=== PATIENT | male | born 1970 | race Two or more races ===

== ENCOUNTER 2020-01-21 13:03 | Inpatient (IN) | payer OTHER ==
[~2020-01-21] VITALS: Ht 162.6 cm; Wt 127.0 kg
--- NOTE | 2020-01-21 13:15 | NUR ---
[facility]/o cough and chest tightness x 1 week. On room air, breathing evenly and unlabored. connected to the monitor and pulse ox. kept comfortable, will continue to monitor accordingly.
--- NOTE | 2020-01-21 13:47 | NUR ---
Dr. Banks at bedside for eval
[2020-01-21] MEDS ORDERED: PANTOPRAZOLE 40 MG VIAL IV ONE (14:00)
[2020-01-21] MEDS ORDERED: PANTOPRAZOLE 40 MG VIAL ONE (14:01)
--- NOTE | 2020-01-21 14:13 | NUR ---
Na at bedside for x-ray
[2020-01-21 14:32] LABS: BASOPHILS # (AUTO) 0.1 /CMM (0.0-0.2); BASOPHILS % (AUTO) 0.7 % (0.0-2.0); EOSINOPHILS % (AUTO) 1.3 % (0.0-6.0); HEMATOCRIT 46 % (39-51); LYMPHOCYTES # (AUTO) 2.6 /CMM (0.8-4.8); LYMPHOCYTES % (AUTO) 21.1 % (20.0-44.0); MEAN CORPUSCULAR HGB CONC 32 g/dl (31.0-36.0); MEAN CORPUSCULAR VOLUME 91 fL (80-96); MONOCYTES # (AUTO) 0.7 /CMM (0.1-1.30); MONOCYTES % (AUTO) 5.9 % (2.0-12.0); NEUTROPHILS # (AUTO) 8.8 /CMM (1.8-8.9); PLATELET COUNT (AUTO) 199 /CMM (150-450); RED BLOOD CELL COUNT(AUTO) 5.06 MIL/uL (4.5-6.0); WHITE BLOOD COUNT (AUTO) 12.4 K/uL (4.3-11.0)
[2020-01-21 14:43] LABS: CALCIUM, SERUM 9.1 mg/dL (8.5-10.1); CREATININE 1.1 mg/dL (0.6-1.3); POTASSIUM 4.2 mmol/L (3.5-5.1)
[2020-01-21 15:27] LABS: EOSINOPHILS % (MANUAL) 1 % (0-4); LYMPHOCYTES % (MANUAL) 26 % (16-48); MONOCYTES % (MANUAL) 8 % (0-11.0); NEUTROPHILS % (MANUAL) 65 (42-76)
[2020-01-21] MEDS ORDERED: IV NS 0.9% 250 ML IV ONE (15:29)
[2020-01-21] MEDS ORDERED: IOHEXOL-350 100 ML VIAL IV ONE (15:29)
[2020-01-21] MEDS ORDERED: CT SWABBABLE VALVE TRANS SET 1 EA INFUS.SET MC ONE (15:29)
[2020-01-21] MEDS ORDERED: ASPIRIN 81 MG TAB.CHEW PO ONE (15:30)
[2020-01-21] MEDS ORDERED: NTG 50 MG/D5W250 ML BOTTL 250 ML IV ONE (15:34)
--- NOTE | 2020-01-21 15:34 | NUR ---
D DIMER CANCELLED AND CTPA ORDERED INSTEAD BY DR DALE,LAB CALLED
[2020-01-21] MEDS ORDERED: ASPIRIN 81 MG TAB.CHEW ONE (15:39)
--- NOTE | 2020-01-21 15:40 | NUR ---
wheeled patient to ct
[2020-01-21] MEDS: NTG 50 MG/D5W250 ML BOTTL 250 ML IV PRN ×2 (15:48→17:09)
--- NOTE | 2020-01-21 15:49 | NUR ---
patient came back from ct
[2020-01-21] MEDS ORDERED: ENOXAPARIN SODIUM 100 MG/ML DISP.SYRIN SQ ONE ×2 (15:58→16:00)
--- NOTE | 2020-01-21 16:30 | NUR ---
spoke to brenton BLACK and update about the patient given.
[2020-01-21] MEDS ORDERED: hydrALAZINE HCL IV 20 MG VIAL ONE (17:10)
[2020-01-21] MEDS ORDERED: NITROGLYCERIN PACKET 1 GM PACKET ONE ×2 (17:11→17:30)
[2020-01-21] MEDS ORDERED: NITROGLYCERIN PACKET 1 GM PACKET TOP ONE ×2 (17:30)
[2020-01-21] MEDS ORDERED: hydrALAZINE HCL IV 20 MG VIAL IV ONE (17:30)
[2020-01-21] MEDS ORDERED: hydrALAZINE HCL 10 MG TABLET PO ONE (17:30)
--- NOTE | 2020-01-21 19:25 | NUR ---
report given to Juanis HUNT for gogo.
--- NOTE | 2020-01-21 19:58 | NUR ---
asked pt about his home meds. pt does not remember the exact dosage of his med. called Daniel, pt's son . He has noaccess to the meds list t this time. Daniel: [phone]
--- NOTE | 2020-01-21 20:06 | NUR ---
BED 322-2
--- NOTE | 2020-01-21 20:35 | NUR ---
report given to arcenio on the 3rd floor
--- NOTE | 2020-01-21 20:50 | NUR ---
TELERN RECEIVED FROM ER VIA JAIMIE, A 49 Y/O MALE CC OF CP WITH SOB. LEVEL 2 OF CP AT THIS TIME, NITROPASTE FROM ER ON RIGHT CW. 02 2 LITERS ON. BEDREST EMPHASIZED. ALERT ORIENTED X4, VERY PLEASANT. ORIENTED TO ROOM FACILITIES, REMINDED TO CALL STAFF FOR ANY ASSITANCE OR DISCOMFORTS, CALL LIGHT USE REVIEWED WITH PATIENT, WELL UNDERSTOOD. SR ON THE MONITOR, CLOSELY WATCHED.
[2020-01-21 21:00] VITALS: BP 127/87
[2020-01-21] MEDS ORDERED: CARVEDILOL 6.25 MG TABLET PO SCH (21:00)
[2020-01-21] MEDS ORDERED: Z GUARD REMEDY 2 OZ OINT TP PRN (21:00)
[2020-01-21] MEDS ORDERED: DEXTROSE 50%-WATER 50 ML DISP.SYRIN IV PRN (21:00)
[2020-01-21] MEDS ORDERED: ACETAMINOPHEN 325 MG TABLET PO PRN (21:00)
[2020-01-21] MEDS ORDERED: ONDANSETRON HCL/PF 4 MG/2 ML VIAL IVP PRN (21:00)
[2020-01-21] MEDS ORDERED: ENOXAPARIN SODIUM 40 MG/0.4 ML DISP.SYRIN SQ SCH (21:00)
[2020-01-21] MEDS ORDERED: ZOLPIDEM TARTRATE 5 MG TABLET PO PRN (21:00)
--- NOTE | 2020-01-21 21:00 | NUR ---
PT WAS TRANSFERRED TO 322 UNDER ACLS
--- NOTE | 2020-01-21 21:15 | NUR ---
TELERN 2D ECHO AT BEDSIDE.
[2020-01-21] MEDS: BLOOD SUGAR DIAGNOSTIC 1 EACH STRIP IN SCH (22:26)
[2020-01-21] MEDS ORDERED: ATORVASTATIN 40 MG TABLET PO ONE (23:00)
[2020-01-21] MEDS ORDERED: hydrALAZINE HCL 25 MG TABLET PO PRN (23:00)
[2020-01-21] MEDS ORDERED: ASPIRIN EC 325 MG TABLET.DR PO SCH (23:00)
--- NOTE | 2020-01-21 23:00 | NUR ---
TELERN DUE MEDS GIVEN, AWARE OF ELEVATED TROP. ORDERS RECEIVED.
[2020-01-22] VITALS: BP 140/85
--- NOTE | 2020-01-22 02:51 | NUR ---
TELERN AWAKENED WITH RIGHT LEG CRAMPS, INSTRUCTED TO STRETCH AFFECTED LEG FOR FEW MINUTES, WITH RELIEF. BEDREST REMINDED. 02 3.5 L VIA NC MAINTAINED.
[2020-01-22 04:00] VITALS: BP 111/74
[2020-01-22] MEDS ORDERED: ENOXAPARIN SODIUM 120 MG/0.8 ML DISP.SYRIN SQ SCH ×3 (04:00→21:00)
[2020-01-22] MEDS ORDERED: ENOXAPARIN SODIUM 60 MG/0.6 ML DISP.SYRIN SQ ONE ×2 (04:14→05:00)
[2020-01-22 04:20] LABS: BASOPHILS % (AUTO) 0.3 % (0.0-2.0); HEMATOCRIT 42 % (39-51); HEMOGLOBIN 13.8 g/dL (13.5-17.5); LYMPHOCYTES # (AUTO) 2.7 /CMM (0.8-4.8); LYMPHOCYTES % (AUTO) 19.3 % (20.0-44.0); MEAN CORPUSCULAR HGB CONC 33 g/dl (31.0-36.0); MEAN CORPUSCULAR VOLUME 90 fL (80-96); MONOCYTES # (AUTO) 1.1 /CMM (0.1-1.30); NEUTROPHILS # (AUTO) 9.8 /CMM (1.8-8.9); NEUTROPHILS % (AUTO) 71.4 % (43.0-81.0); PLATELET COUNT (AUTO) 266 /CMM (150-450); RED BLOOD CELL COUNT(AUTO) 4.69 MIL/uL (4.5-6.0); WHITE BLOOD COUNT (AUTO) 13.8 K/uL (4.3-11.0)
[2020-01-22 04:32] LABS: ALBUMIN 3.6 g/dL (3.4-5.0); BILIRUBIN,TOTAL 0.8 mg/dL (0.2-1.0); CALCIUM, SERUM 8.7 mg/dL (8.5-10.1); MAGNESIUM 1.8 mg/dL (1.8-2.4); PHOSPHORUS 5.3 mg/dL (2.5-4.9); POTASSIUM 4.2 mmol/L (3.5-5.1); TOTAL PROTEIN, SERUM 6.8 g/dL (6.4-8.2)
--- NOTE | 2020-01-22 07:00 | NUR ---
TELERN REMAINS SR ON THE MONITOR, 02 MAINTAINED. BS STABLE, NO COVERAGE. KEPT NPO TILL SEEN BY HOUSE FELLOW.
[2020-01-22 07:46] LABS: THYROID STIMULATING HORMONE 3.522 uIU/mL (0.358-3.74)
[2020-01-22 08:00] VITALS: BP 122/72
[2020-01-22] MEDS: BLOOD SUGAR DIAGNOSTIC 1 EACH STRIP IN SCH ×4 (09:13→22:22)
--- NOTE | 2020-01-22 13:23 | NUR ---
received call from cardiac cath nurse, stating that per dr. Stiles to start diet and possible cardiac cath in am, npo from midnight. primary nurse Jen keen.
[2020-01-22] MEDS: VALSARTAN 80 MG TABLET PO SCH (13:25)
[2020-01-22] MEDS: ASPIRIN EC 81 MG TABLET.DR PO SCH (13:29)
[2020-01-22] MEDS: CARVEDILOL 6.25 MG TABLET PO SCH ×2 (13:30→22:18)
[2020-01-22] MEDS: PANTOPRAZOLE 40 MG TABLET.DR PO SCH (13:30)
[2020-01-22] MEDS: INSULIN REGULAR, HUMAN 100 UNIT/ML 3 ML VIAL SQ PRN ×3 (14:47→22:29)
[2020-01-22] MEDS ORDERED: METF-440 PO (15:03)
[2020-01-22] MEDS ORDERED: OMEP20CA15 PO (15:09)
[2020-01-22] MEDS ORDERED: ROSU10TA2 PO (15:11)
[2020-01-22 16:00] VITALS: BP 124/73
--- NOTE | 2020-01-22 19:00 | NUR ---
gilbert questioned dr. haro as to whether to administer lovenox evening dose tonight as pt. to have cardiac cath tomorrow.md vazquez'naman dose. endorsed to eve. garvey. Addendum: 01/22/20 at 2034 by MODESTA KRAFT RN ABOVE NOTE INCORRECT STATED TO HOLD KALI. LOVENOX TONIGHT.GILBERT DELUCA.
--- NOTE | 2020-01-22 19:05 | NUR ---
TELE/RN NOTES: RECEIVED REPORT FROM GILBERT Hooper RECEIVED PT. AWAKE IN BED, RESTING. A/OX4. VERBALLY RESPONSIVE, AND ABLE TO MAKE NEEDS KNOWN. ON TELE WITH READING OF NSR, HR ON THE 90S. BREATHING EVEN AND UNLABORED. CURRENTLY ON ROOM AIR SATURATING AT 95%. IV ON THE RIGHT HAND #18G INTACT, PATENT AND FLUSHING WELL. TO BE PLACED ON NPO STARTING MIDNIGHT FOR CARDIAC CATHETERIZATION PROCEDURE TOMORROW. PER REPORT, PT IS A HARD STICK AND ER NURSES COULDN'T GET AN AC IV LINE. WILL TRY TO PUT IN A LINE LATER. SAFETY MEASURES ARE IN PLACE. BED IN LOW, LOCKED POSITION WITH SR UP X2. CALL LIGHT WITHIN REACH. WILL CONTINUE TO MONITOR.
--- NOTE | 2020-01-22 19:10 | NUR ---
TELE/RN NOTES: CLARIFIED WITH DAY SHIFT RN, MODESTA Hooper AND DR. MURILLO. LOVENOX 120MG TO BE HELD TO NIGHT FOR CARDIAC CATH PROCEDURE TOMORROW. WILL CONTINUE TO MONITOR.
[2020-01-22 20:00] VITALS: BP 126/79
[2020-01-22] MEDS ORDERED: ENOXAPARIN SODIUM 60 MG/0.6 ML DISP.SYRIN SQ SCH (21:00)
[2020-01-22] MEDS: ATORVASTATIN 40 MG TABLET PO SCH (22:18)
--- NOTE | 2020-01-22 22:32 | NUR ---
TELE/RN NOTES: PT'S BS CHECK FOR HS IS 150. ADMINISTERED 2 UNITS OF REGULAR INSULIN PER SLIDING SCALE. GIVEN ORANGE JUICE TO PREVENT BLOOD SUGAR FROM DROPPING. ALL DUE MEDS ADMINISTERED. INFORMED PT. HE WILL BE NPO AFTER MIDNIGHT FOR CARDIAC CATH PROCEDURE. WILL CONTINUE TO MONITOR.
[2020-01-23] VITALS (15 sets, daily range): BP systolic 95–141; BP diastolic 56–74
[2020-01-23] MEDS ORDERED: BIVALIRUDIN 250 MG/VIAL IV ONE (06:00)
--- NOTE | 2020-01-23 06:07 | NUR ---
TELE/RN NOTES: ATTEMPTED 2X FOR AN AC IV LINE #20G PRIOR TO SCHEDULE CARDIAC CATH. PT. IS HARD STICK.
[2020-01-23] MEDS ORDERED: IV NS 0.9% 500 ML IV ONE (06:12)
[2020-01-23] MEDS ORDERED: IODIXANOL 150 ML IV ONE (06:13)
[2020-01-23] MEDS ORDERED: LIDOCAINE HCL/PF 1% 30 ML SDV ONE (06:13)
[2020-01-23] MEDS: BLOOD SUGAR DIAGNOSTIC 1 EACH STRIP IN SCH ×4 (06:30→21:29)
[2020-01-23] MEDS: INSULIN REGULAR, HUMAN 100 UNIT/ML 3 ML VIAL SQ PRN ×4 (06:31→21:32)
--- NOTE | 2020-01-23 06:31 | NUR ---
TELE/RN NOTES: BS CHECK FOR AC IS 161. PT. HAS BEEN NPO AND IS CURRENTLY NPO FOR CARDIAC CATH PROCEDURE TODAY. REGULAR INSULIN HELD.
[2020-01-23] MEDS ORDERED: VERAPAMIL HCL IV 5 MG/2 ML VIAL ONE (06:33)
[2020-01-23] MEDS ORDERED: HEPARIN SODIUM, PORCINE 1,000 UNIT/ML VIAL ONE ×2 (06:33→07:31)
[2020-01-23] MEDS ORDERED: IV SET PRIMARY PUMP SET 1 EA INFUS.SET MC ONE (06:33)
[2020-01-23] MEDS ORDERED: NITROGLYCERIN ICAR 1,000 MCG/10 ML VIAL ICAR ONE (06:34)
--- NOTE | 2020-01-23 06:50 | NUR ---
TELE/RN NOTES: PT. AWAKE IN BED, RESTING. A/OX4. VERBALLY RESPONSIVE, AND ABLE TO MAKE NEEDS KNOWN. ON TELE WITH READING OF NSR, HR ON THE 70S. BREATHING EVEN AND UNLABORED. CURRENTLY ON 3L OF OXYGEN VIA NC SATURATING AT 96%. IV ON THE RIGHT HAND #18G INTACT, PATENT AND FLUSHING WELL. ANOTHER IV INSERTED BY CATH AMBER ESPINOZA ON THE LEFT HAND #18G. KEPT NPO STARTING MIDNIGHT FOR CARDIAC CATHETERIZATION PROCEDURE TODAY. SAFETY MEASURES KEPT IN PLACE. BED IN LOW, LOCKED POSITION WITH SR UP X2. CALL LIGHT WITHIN REACH. WILL ENDORSE TO DAY SHIFT FOR ROMEO
--- NOTE | 2020-01-23 07:00 | NUR ---
TELE/RN NOTES: [facility] WITH RN OLGA AT BEDSIDE. NEW IV LINE IN PLACED AT LEFT HAND.
--- NOTE | 2020-01-23 07:19 | NUR ---
TELE/RN CLOSING NOTES: PATIENT REPORT GIVEN TO GILBERT Hooper ALL CONTINUITY OF CARE ENDORSED.
[2020-01-23] MEDS: PANTOPRAZOLE 40 MG TABLET.DR PO SCH (07:30)
[2020-01-23] MEDS ORDERED: MIDAZOLAM HCL 2 MG/2ML VIAL ONE (07:31)
[2020-01-23] MEDS ORDERED: FENTANYL PF 100MCG/2ML AMPUL ONE (07:31)
[2020-01-23 07:56] LABS: BASOPHILS % (AUTO) 0.5 % (0.0-2.0); EOSINOPHILS % (AUTO) 1.5 % (0.0-6.0); HEMATOCRIT 42 % (39-51); HEMOGLOBIN 13.9 g/dL (13.5-17.5); LYMPHOCYTES # (AUTO) 2.9 /CMM (0.8-4.8); LYMPHOCYTES % (AUTO) 27.7 % (20.0-44.0); MEAN CORPUSCULAR HGB CONC 33 g/dl (31.0-36.0); MEAN CORPUSCULAR VOLUME 91 fL (80-96); MONOCYTES # (AUTO) 0.8 /CMM (0.1-1.30); MONOCYTES % (AUTO) 8.1 % (2.0-12.0); NEUTROPHILS # (AUTO) 6.6 /CMM (1.8-8.9); NEUTROPHILS % (AUTO) 62.2 % (43.0-81.0); PLATELET COUNT (AUTO) 244 /CMM (150-450); RED BLOOD CELL COUNT(AUTO) 4.63 MIL/uL (4.5-6.0); WHITE BLOOD COUNT (AUTO) 10.5 K/uL (4.3-11.0)
[2020-01-23] MEDS ORDERED: CLOPIDOGREL BISULFATE 300 MG TABLET ONE (08:18)
[2020-01-23] MEDS ORDERED: ASPIRIN 81 MG TAB.CHEW ONE (08:19)
[2020-01-23 08:35] LABS: ALBUMIN 3.4 g/dL (3.4-5.0); CALCIUM, SERUM 8.8 mg/dL (8.5-10.1); PHOSPHORUS 3.9 mg/dL (2.5-4.9); POTASSIUM 4.3 mmol/L (3.5-5.1); TOTAL PROTEIN, SERUM 6.9 g/dL (6.4-8.2)
--- NOTE | 2020-01-23 08:50 | NUR ---
silviculture teacher initial note recieved patient awake alert and oriented, denies sob, denies pain or discomfort. on tele monitor sinus rhythm. skin warm and dry to touch. with tr band on right wrist, denies numbness, able to move fingers, no hematoma noted. noted with spo2 90% on room air. patient states he was on oxygen upstairs, placed patient on 2lpmo2 via nc. side rails up and locked. bed kept at lowest position. call light kept within easy reach. will continue to monitor.
[2020-01-23] MEDS: CARVEDILOL 6.25 MG TABLET PO SCH ×2 (09:00→21:34)
[2020-01-23] MEDS: VALSARTAN 80 MG TABLET PO SCH (09:00)
[2020-01-23] MEDS: ASPIRIN EC 81 MG TABLET.DR PO SCH (09:00)
[2020-01-23] MEDS ORDERED: IV NS 0.9% 1,000 ML IV ONE (09:00)
--- NOTE | 2020-01-23 09:50 | NUR ---
CNC MILLING MACHINIST NOTE LAB AT BEDSIDE. PATIENT, UNABLE TO DRAW FROM PICC LINE, NO BLOOD RETURN. APPLICATION PROCESSOR ATTEMPTED FROM PERIPHERAL, PATIENT IS HARD STICK. WAS UNABLE TO DRAW LAB WORK Addendum: 01/23/20 at 1021 by STEPHEN CAMACHO RN DISREGARD; WRONG PATIENT
--- NOTE | 2020-01-23 11:00 | NUR ---
multicultural internship note TR band removed, no complications note, no hematoma, patient denies numbness, no bleeding noted. will continue to monitor.
--- NOTE | 2020-01-23 12:00 | NUR ---
multicut line operator note blood sugar 140, covered per protocol. lunch eaten 100%
--- NOTE | 2020-01-23 13:20 | NUR ---
SLIME PLANT OPERATOR HELPER NOTE PATIENT TRANSFERRED VIA BED AND BROUGHT TO 326-1, PATIENT IN STABLE CONDITION. BEDSIDE REPORT GIVEN TO TORRES HUNT.
--- NOTE | 2020-01-23 14:00 | NUR ---
Tele/RN - Transfer from ICU Received from ICU s/p left heart cath with selective left and right coronary angiography under the care of Dr. Machuca today, right radial puncture site assessed, no bleeding, no oozing, no hematoma, no swelling noted, dressing is clean, dry, and intact. RUE is warm, pulse strength good, sensation intact. Patient is A/O x 4, denies chest/abdominal/back pain, no c/o SOB, uses supplemental oxygen at 2lpm via NC, tele shows SR 75. All needs attended. Will continue with current plan of care.
--- NOTE | 2020-01-23 18:25 | NUR ---
Tele/RN - End of shift summary No significant change in condition, A/O x 4, on 2lpm via NC, SpO2 93%, remain afebrile, tele shows SR, blood sugar controlled, right radial puncture site with no hematoma, no bleeding, no swelling seen. Plan of care discussed with patient and in agreement.
--- NOTE | 2020-01-23 20:15 | NUR ---
RECEIVED ALERT AND ORIENTATED SPEECH CLEAR RIGHT RADIAL PUNCTURE SITE CDI. SR ON THE MONITOR CALL LIGHT REVIEWED WITH THE PATIENT
[2020-01-23] MEDS: ATORVASTATIN 40 MG TABLET PO SCH (21:33)
[2020-01-24] VITALS: BP 114/71
[2020-01-24 00:32] VITALS: BP 114/71
[2020-01-24 04:00] VITALS: BP 117/68
--- NOTE | 2020-01-24 05:05 | NUR ---
MR. MONIQUE WAS AWAKE UNTIL 23:00 AND THEN ASKED FOR SOMETHING TO HELP HIM SLEEP. AMBIEN GIVEN AND EFFECTIVE. DENIES PAIN. ON THE SOFTWARE TESTER HE IS SR 64 - 78 THRU THE NIGHT. NO SOB NOTED THIS 12 HOURS. SLEPT WITH 2 LITERS 02 SATS 96% RIGHT RADIAL PUNCTURE SITE CDI. NO HEMATOMA.
[2020-01-24 05:10] VITALS: BP 117/68
[2020-01-24] MEDS: BLOOD SUGAR DIAGNOSTIC 1 EACH STRIP IN SCH ×2 (06:13→12:10)
[2020-01-24] MEDS: INSULIN REGULAR, HUMAN 100 UNIT/ML 3 ML VIAL SQ PRN ×2 (06:18→11:51)
--- NOTE | 2020-01-24 07:39 | NUR ---
RN NOTES RECEIVED PATIENT IN BED ,ASLEEP, ALERT AND ORIENTED X 3. NO SIGNS OF DISTRESS NOTED AT THIS TIME. IV ON LEFT HAND, SL. SHOWS NO SIGNS OF INFILTRATION, NO REDNESS. SAFETY PRECAUTIONS IN PLACE. BED IN LOWEST POSITION, LOCKED, AND CALL LIGHT KEPT WITHIN REACH. WILL CONTINUE TO MONITOR.
[2020-01-24 08:10] VITALS: BP 120/74
[2020-01-24 08:55] VITALS: BP 120/74
[2020-01-24] MEDS: ASPIRIN EC 81 MG TABLET.DR PO SCH (08:55)
[2020-01-24] MEDS: VALSARTAN 80 MG TABLET PO SCH (08:55)
[2020-01-24] MEDS: CARVEDILOL 6.25 MG TABLET PO SCH (08:55)
[2020-01-24] MEDS: PANTOPRAZOLE 40 MG TABLET.DR PO SCH (08:55)
[2020-01-24] MEDS ORDERED: CLOPIDOGREL BISULFATE 75 MG TABLET PO SCH (09:00)
[2020-01-24] MEDS ORDERED: ASPI-1152 PO (09:30)
[2020-01-24] MEDS ORDERED: ATOR40TA PO (09:30)
[2020-01-24] MEDS ORDERED: CARV6.252 PO (09:30)
[2020-01-24] MEDS ORDERED: CLOP75TA15 PO (09:30)
[2020-01-24] MEDS ORDERED: VALS80TA2 PO (09:30)
--- NOTE | 2020-01-24 12:49 | NUR ---
RN DISCHARGED NOTES PATIENT DISCHARGED IN STABLE CONDITION. A/O X4. ABLE TO MAKE NEEDS KNOWN. V/S TAKEN, STABLE AND RECORDED. PATIENT'S IV REMOVED AND APPLIED PRESSURE DRESSINGS. SKIN IS INTACT. NAME ARM BAND REMOVED. ALL BELONGINGS CHECKED AND SIGNED. HEALTH TEACHINGS/DISCHARGED INSTRUCTIONS GIVEN TO PATIENT AND VERBALIZED UNDERSTANDING. PATIENT LEFT UNIT VIA WHEELCHAIR, ASSISTED TO THE LOBBY WITH NO ACUTE SIGNS OF DISTRESS NOTED. PICKED UP BY DAUGHTER. CHARGE NURSE AWARE OF DISCHARGED.
== END 2020-01-24 12:30 | disposition home or self-care (01) | DRG 190 ==
LOC: ER 13:07 → TELE 20:09 → ICUOV 01-23 09:17 → TELE 01-23 13:58 → MED 01-24 08:44
PROVIDERS: ADMIT Nurse Practitioner Acute Care; ATTEND Internal Medicine
DX: I21.4 Non-ST elevation (NSTEMI) myocardial infarction (principal); I50.31 Acute diastolic (congestive) heart failure; E11.65 Type 2 diabetes mellitus with hyperglycemia; E87.1 Hypo-osmolality and hyponatremia; E66.01 Morbid (severe) obesity due to excess calories; D72.829 Elevated white blood cell count, unspecified; K21.9 Gastro-esophageal reflux disease without esophagitis; I25.10 Atherosclerotic heart disease of native coronary artery without angina pectoris; E78.5 Hyperlipidemia, unspecified; Z68.42 Body mass index [BMI] 45.0-49.9, adult; I16.9 Hypertensive crisis, unspecified; I11.0 Hypertensive heart disease with heart failure
CPT/HCPCS: 36415; 71045-TC; 80048-TC; 80053-TC; 80061-TC; 82962-TC; 83735-TC; 84100-TC; 84443-TC; 84484-TC; 85025-TC; 85730-TC; 87081-TC; 93307-TC; C1769; C1887; C9113; G0378; G0500; J0360; J1644; J1650; J1815; J2250; J3010; J3490; J7030; J7040; J7050; Q9967

== ENCOUNTER 2020-04-17 11:14 | Emergency (ER) | payer OTHER ==
[~2020-04-17] VITALS: Ht 162.6 cm; Wt 127.0 kg
[~2020-04-17 11:14] MED LIST: ASPI-1420 PO; ATOR40TA PO; CARV6.252 PO; CLOP75TA15 PO; METF-440 PO; OMEP20CA15 PO; VALS80TA2 PO
[2020-04-17 11:22] VITALS: BP 147/114
--- NOTE | 2020-04-17 11:34 | NUR ---
SEEN AND BY .
--- NOTE | 2020-04-17 11:42 | NUR ---
CONTRACT RECRUITER AT BEDSIDE FOR XRAY.
--- NOTE | 2020-04-17 11:56 | NUR ---
COVID SWAB OBTAINED AND SENT TO LAB.
--- NOTE | 2020-04-17 12:34 | NUR ---
Patient discharged to home in stable condition. Written and verbal after care instructions given. Patient verbalizes understanding of instruction.
== END 2020-04-17 12:35 | disposition home or self-care (01) ==
LOC: ER 11:18
DX: U07.1 COVID-19 (principal); J20.8 Acute bronchitis due to other specified organisms; I10 Essential (primary) hypertension; K21.9 Gastro-esophageal reflux disease without esophagitis; E78.5 Hyperlipidemia, unspecified; E11.9 Type 2 diabetes mellitus without complications; Z79.84 Long term (current) use of oral hypoglycemic drugs; Z79.02 Long term (current) use of antithrombotics/antiplatelets; Z79.82 Long term (current) use of aspirin; Z79.899 Other long term (current) drug therapy
CPT/HCPCS: 71045; 99284; C9803; U0003